=== PATIENT | male | born 1965 | race Caucasian/White ===

== ENCOUNTER 2020-08-17 10:20 | Inpatient (IN) | payer OTHER ==
[2020-08-17] VITALS (13 sets, daily range): BP systolic 112–170; BP diastolic 65–102
[~2020-08-17] VITALS: Ht 188 cm; Wt 118.4 kg
[~2020-08-17 10:20] MED LIST: ACYCLOVIR 400400 MG PO; ATORVASTATIN CA10 MG; COZAAR 50 MG TA50 M1 PO; GLUCOPHAGE500 MG PO; IBUPROFEN 800800 M1 PO; JARDIANCE25 MG PO; LISINOPRIL20 MG PO; ROBAXIN 750 MG750 MG PO; TRAMADOL 50 MG50 MG PO; ULTRAM 50MG TAB50 MG PO; VICTOZA0.6 MG/0.1
[2020-08-17] MEDS ORDERED: NOVOLOG100 UNIT/M SUBQ (10:34)
[2020-08-17] MEDS ORDERED: SOLIQUA 100 UNIT3 ML SUBQ (10:35)
[2020-08-17 10:58] LABS: ABSOLUTE LYMPHOCYTES 1.8 thou/uL (0.8-5.3); ABSOLUTE MONOCYTES 0.4 thou/uL (0.0-1.2); ABSOLUTE NEUTROPHILS 5.3 thou/uL (1.6-8.1); BASOPHILS 0.6 %; EOSINOPHILS 0.5 %; HEMATOCRIT 44.7 % (42.0-52.0); HEMOGLOBIN 15.4 gm/dL (14.0-18.0); LYMPHOCYTES 23.6 %; MCH 29.5 pg (26.0-34.0); MCHC 34.4 g/dL (28.0-37.0); MCV 85.8 fL (80.0-100.0); MONOCYTES 5.6 %; MPV 7.8 fl. (7.2-11.1); NUCLEATED RBCS 0 /100WBC; PLATELET COUNT* 159 thou/uL (150-400); POLYS 69.7 %; RBC 5.21 mil/uL (4.50-6.00); RDW-CV 13.7 % (10.5-14.5); WBC 7.6 thou/uL (4.0-11.0)
[2020-08-17 11:14] LABS: CALCIUM 7.8 mg/dL (8.5-10.1); POTASSIUM 3.8 mmol/L (3.5-5.1)
[2020-08-17 11:18] LABS: ALBUMIN 3.7 g/dL (3.4-5.0); MAGNESIUM 2.1 mg/dL (1.8-2.4); TOTAL BILIRUBIN 0.7 mg/dL (<0.1-1.0); TOTAL PROTEIN 7.2 g/dL (6.4-8.2)
[2020-08-17 12:25] LABS: CHOLESTEROL 140 mg/dL (<200); HDL CHOLESTEROL 40 mg/dL (>40); LDL CHOLESTEROL 89 mg/dL (<100); TC:HDL 3.5 Ratio (Not establshd); TRIGLYCERIDE 59 mg/dL (<150); VLDL 12 mg/dL (<40)
[2020-08-17 12:26] LABS: SERUM ASSESSMENT Clear
[2020-08-17 14:22] LABS: APTT 25.4 Seconds (25.0-31.3); PROTIME 10.3 Seconds (9.20-11.50)
--- NOTE | 2020-08-17 18:10 | EKG ---
[place] [address] ELECTROCARDIOGRAM REPORT Name: TRAMAINE ESCOBEDO Room: [address] ADM IN [facility].#: [id number] Admission: 08/17/20 Attend Phys: Tramaine Calzada Discharge: Date of : 63 Date of Service: 08/17/20 1029 Report #: [id number] THIS REPORT FOR: //name// [facility] ED Test Date: 2020-08-17 Test Time: 10:29:55 Pat Name: TRAMAINE ESCOBEDO Department: Room: [facility] Gender: M Nutrition Specialist: : 1965 Requested By: Marcos Farooq Order Number: [id number] MD: Peewee Young Measurements Intervals [place] Rate: 62 P: 45 NV: 179 QRS: -10 QRSD: 85 T: 68 QT: 391 QTc: 397 Interpretive Statements Sinus rhythm Inferior infarct, old Anterior infarct, old Baseline wander in lead(s) V3 No previous ECG available for comparison Electronically Signed On 08-17-2020 18:09:52 MASSEUR/MASSEUSE by Peewee Young [email or web address] <ELECTRONICALLY SIGNED> By: Peewee Young MD, FACC 08/17/20 1809 1029 1029 Peewee Yougn MD, FAC /EPI
--- NOTE | 2020-08-17 18:11 | EKG ---
[place] [address] ELECTROCARDIOGRAM REPORT Name: TRAMAINE ESCOBEDO Room: [address] IN [facility]#: [id number] Admission: 08/17/20 Attend Phys: Tramaine Calzada Discharge: Date of : 63 Date of Service: 08/17/20 1641 Report #: [id number] THIS REPORT FOR: //name// [facility] Test Date: 2020-08-17 Test Time: 16:41:00 Pat Name: TRAMAINE ESCOBEDO Department: Room: [facility] Gender: M Community Engagement Manager: : 1965 Requested By: Robert Trinidad Order Number: [id number] Eyad MD: Peewee Young Measurements Intervals [place] Rate: 56 P: 33 MA: 182 QRS: 5 QRSD: 82 T: 60 QT: 404 QTc: 390 Interpretive Statements Sinus rhythm Anterior infarct, old Baseline wander in lead(s) II,III,aVR,aVF Compared to ECG 08/17/2020 10:29:55 No significant changes Electronically Signed On 08-17-2020 18:11:30 ALUMNI RELATIONS MANAGER by Peewee Young [email or web address] <ELECTRONICALLY SIGNED> By: Peewee Young MD, FACC 08/17/20 1811 164 164 Peewee Young MD, FAC /EPI
--- NOTE | 2020-08-17 18:50 | NUR ---
RECEIVED REPORT FROM [facility] ATTENDANT. PT ARRIVED TO TELE FLOOR AROUND 1621. BALANCE SHEET ANALYST PLACED. RIGHT GROIN CDI, NO BLEEDING. POST CATH VITALS CHARTED. ADMISSION ASSESSMENT, HISTROY AND EDUCATION COMPLETED CHARTED. PT DENIED PAIN. MED REC UPDATED. PT TO LIE FLAT TILL 10PM. DR HUI IN TO SEE PT THIS EVENING BEFORE HE WENT HOME. THIS RN DID UPDATE DR HUI AT THAT TIME (1844) THAT PT'S TROPONIN WAS 15.80 - NO ORDERS RECEIVED, DR HUI SAID THAT WAS EXPECTED GIVEN PT'S STATUS AND STENTS. PT ATTEMPTING TO VOID PER URINAL, UNSUCCESSFUL SO FAR. WILL CONTINUE TO MONITOR BLADDER AND CATH SITE. PT CURRENTLY RESTING IN BED. CALL LIGHT IS WITHIN REACH. HOURLY ROUNDING PERFORMED. LOW FALL RISK PRECAUTIONS IN PLACE.
[2020-08-17] MEDS ORDERED: FARXIGA5 MG PO (18:53)
[2020-08-17] MEDS ORDERED: ADDERALL XR 3030 MG PO (18:54)
[2020-08-18 00:11] VITALS: BP 121/69
[2020-08-18 05:22] VITALS: BP 130/82
[2020-08-18 05:31] LABS: HEMATOCRIT 43.5 % (42.0-52.0); HEMOGLOBIN 14.9 gm/dL (14.0-18.0); MCH 29.5 pg (26.0-34.0); MCHC 34.2 g/dL (28.0-37.0); MCV 86.2 fL (80.0-100.0); MPV 8.2 fl. (7.2-11.1); RBC 5.04 mil/uL (4.50-6.00); RDW-CV 14.1 % (10.5-14.5); WBC 9.2 thou/uL (4.0-11.0)
--- NOTE | 2020-08-18 05:45 | NUR ---
PT CARE ASSUMED AT 1930. SAT MAINTAINED IN RA. ALERT ADN ORIENTED X4. DENIES PAIN AND SOB. CATH SITE DRESSING C/D/I, BRUISING PRESENT. CALL LIGHT WITHIN REACH AND BED IN LOW POSIITON. HOURLY ROUNDING DONE FOR PT SAFETY.
[2020-08-18 06:34] LABS: ALBUMIN 3.5 g/dL (3.4-5.0); CALCIUM 8.1 mg/dL (8.5-10.1); CREATININE 0.9 mg/dL (0.6-1.3); POTASSIUM 3.6 mmol/L (3.5-5.1); TOTAL BILIRUBIN 0.8 mg/dL (<0.1-1.0)
[2020-08-18 06:36] LABS: TROPONIN-I LEVEL 16.42 ng/mL (<0.06)
[2020-08-18 10:38] VITALS: BP 132/80
--- NOTE | 2020-08-18 10:58 | NUR ---
CM SPOKE TO THE PT TO DISCUSS CM ASSESSMENT. 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 PT OWNS 0 DME. CM WILL REMAIN AVAILABLE TO ASSIST AND FOLLOW NEEDED.
[2020-08-18 12:00] VITALS: BP 115/62
--- NOTE | 2020-08-18 13:36 | CARD ---
[address] [address] CARDIAC CATH REPORT Name: CLEMENTE ESCOBEDO Room: [address] IN [facility].#: [id number] Admission: 08/17/20 Attend Phys: Deanne Davalos Discharge: Date of : 63 Report #: [id number] THIS REPORT FOR: //name// cc: Michael Eisenberg MD, Bruce D. MD ~ APPROVED REPORT Study performed: 08/17/2020 13:58:22 Patient Details Patient Status: ED Room #: The patient is a 54 year-old male Event Personnel Robert Trinidad Die Cutter Apprentice, Rosa Ordoñez RN Hand Flatwork Finisher, Emiliana Joyce RTR Monitor, Ilia Bernstein FAMILY MEMBER CARETAKER Scrub Procedures Performed Art Access - R femoral artery, Left Heart Cath w/or w/o Coronaries LHC, MANPREET Place w/wo Plasty Single RCA, MANPREET Revasc Chronic Ttl Occl Single LAD CTOREVSING, Hemostasis w/ Angioseal Indication Non-STEMI Risk Factors Obesity, Hypercholesterolemia, Hypertension, Diabetes Admission/Lab Medications/Medications [place] [address] units, Angiomax IV 12 ml, Angiomax Drip IV 38.88 ml per hr, Effient PO 60 mg, Aspirin PO 162 mg Procedure Narrative The patient was brought urgently to the Cardiac Catheterization Laboratory and was prepped and draped in a sterile manner. The right femoral was infiltrated with 1% Lidocaine subcutaneous anesthesia. A 6F [place] sheath was inserted into the right femoral artery. Coronary angiography was performed using coronary diagnostic catheters. The right coronary system was accessed and visualized with a 6F 3DRC catheter. The left coronary system was accessed and visualized with a 6F JL4 catheter. The left ventricle was accessed and visualized with a 6F Straight Pigtail catheter. Left ventricular/Aortic Valve gradient assessed via catheter pullback. Left ventriculogram was performed in SMALLS projection. Pre-demployment femoral angiogram was performed . Closure device [place] [address] CARDIAC CATH REPORT Name: CLEMENTE ESCOBEDO Room: [address]#: [id number] Admission: 08/17/20 Attend Phys: Deanne Davalos Discharge: Date of : 63 Report #: [id number] 6 Fr Angioseal STS. The patient tolerated the procedure well and there were no complications associated with the procedure. There was no hematoma. Intraoperative Conscious Sedation Sedation start time: 14:30 Case end Time: 15:50 Fentanyl 50 mcg Versed 1 mg Fluoro Time: 22.9 minutes Dose: DAP 218698 cGycm2 4347 mGy Contrast Type and Amount: Visipaque 575 ml Coronary Angiography The patient's coronary anatomy is right dominant. Diagnostic Cath Left Main 0% narrowing LAD 100% mid vessel occlusion with faint left to left and right to left collaterals filling the distal LAD Circumflex 30% proximal narrowing with 80% stenosis of a subbranch of the first marginal branch of the nondominant circumflex Right Coronary 30% proximal narrowing with 40 and 80% distal right coronary stenoses; there were faint collaterals from the distal right coronary artery through the septum to the LAD Left Ventriculography The left ventricle is normal in size with contractility. The left ventricular ejection fraction is estimated to be 50%. Left ventricular wall motion abnormalities are present. There is no mitral insufficiency. Mild anteroapical hypokinesis is noted Hemodynamics The aortic pressure is 120/74 mmHg with a mean of 93 mmHg. The left ventricular pressure is 120/1 mmHg with a mean of mmHg. The left ventricular end diastolic pressure is 18 mmHg. There was no gradient across the aortic valve upon pullback. PCI Technique Lesion Anticoagulation was achieved with Angiomax. Angiomax IV bolus 12 ml Patient [place] [address] units. Percutaneous coronary intervention was performed on the mid left anterior descending artery segment. The lesion stenosis prior to intervention was 100% with CESAR 0 flow. A 6FR XB 3.5 100CM Guide Catheter was used to engage the lm ostium. A ProwaterFlex 180[place] [address] CARDIAC CATH REPORT Name: CLEMENTE ESCOBEDO Room: [address]#: [id number] Admission: 08/17/20 Attend Phys: Deanne Davalos Discharge: Date of : 63 Report #: [id number] Guidewire was used to cross the lesion. BALLOON DILATION A Balloon catheter Mini Trek RX 2.0 X 12 was inserted and inflated up to 14.00atm for 11seconds. Additional Inflation: 12.00atm for 8seconds. Additional Inflation: 12.00atm for 14seconds. STENT DEPLOYMENT A drug-eluting stent Hawthorn RX Stent 2.89E88bc was inserted and inflated up to 12.00atm for 14seconds. Additional Inflation: 15.00atm for 8seconds. Additional Inflation: 17.00atm for 9seconds. POST STENT DEPLOYMENT BALLOON DILATION A Balloon catheter NC Trek RX 2.5 X 12 was inserted and inflated up to 15.00atm for 9seconds. Additional Inflation: 14.00atm for 6seconds. Final angiography reveals 10 % stenosis with CESAR 3 flow. COMMENTS I was able to traverse the segment of chronic total occlusion of the mid LAD with a soft-tipped wire, crossing the micro channels with a prowater flex. I was then able to dilate the mid LAD and ultimately deploy a drug-eluting stent achieving CESAR-3 flow to the distal vessel PCI Technique Lesion 2 Percutaneous Coronary Intervention was performed on the distal right coronary artery. Patient [place] [address] units. The lesion stenosis prior to intervention was 80% with CESAR 3 flow. A 6F 3DRC Guide Catheter was used to engage the right ostium. A ProwaterFlex 180CM Interventional Guidewire was used to cross the lesion. Stent Deployment A drug-eluting stent Chang RX Stent 2.0X8mm was inserted and inflated up to 16.00atm for 10seconds. Additional Inflation: 22.00atm for 10seconds. Post Stent Deployment Balloon Dilation A Balloon catheter NC Trek RX 2.5 X 8 was inserted and inflated up to 16.00atm for 11seconds. Additional Inflation: 20.00atm for 11seconds. Additional Inflation: 24.00atm for 11seconds. A balloon catheter NC Trek RX 2.75 x 8 was inserted and inflated up to 15 emily for 8 seconds; 17 emily for 11 seconds; 18 emily [address] [address] CARDIAC CATH REPORT Name: CLEMENTE ESCOBEDO Room: [address] IN M.R.#: [id number] Admission: 08/17/20 Attend Phys: Deanne Davalos Discharge: Date of : 63 Report #: [id number] Final angiography reveals 10 % stenosis with CESAR 3 flow. Conclusion 1. Significant multivessel coronary artery disease characterized by the following: A 100% chronic total occlusion of the mid LAD with faint left to left and right to left collaterals filling the distal LAD system B 30% proximal circumflex narrowing with 80% stenosis of a subbranch of the first marginal branch C dominant right coronary artery with 30% proximal narrowing and tandem 40 and 80% distal stenoses 2. Mild impairment in global LV function, estimated ejection fraction being 50% with anteroapical hypokinesis 3. Modest elevation of left ventricular end-diastolic pressure at rest 4. Successful recanalization of the chronic total occlusion the mid LAD with 10% residual narrowing and CESAR-3 flow to the distal vessel 5. Successful PCI with stenting of the distal right coronary artery with 10% residual narrowing and CESAR-3 flow to the distal vessel Recommendations Cardiac Risk Reduction Program Aggressive Medical Therapy Medications Administered Aspirin (any) Prasugrel Diagnostic Cath Approved by: Robert Trinidad MD Date/Time: 08/18/2020 13:32:40 <ELECTRONICALLY SIGNED> By: Robert Trinidad MD, [facility] 08/18/20 1336 1336 1336Robert Trinidad MD, [facility] /INF
[2020-08-18 16:00] VITALS: BP 123/77
--- NOTE | 2020-08-18 16:51 | NUR ---
PT A&Ox4. VITALS STABLE. IV PATENT, SL. EATING WELL. UP AD JULIUS, WALKING HALLS. ACCU CHECK. SR ON MONITOR. RIGHT GROIN SITE C/D/I. ON RA. CALL LIGHT WITHIN REACH. WILL CONTINUE TO MONITOR.
[2020-08-18 20:10] VITALS: BP 123/63
[2020-08-19] VITALS: BP 137/71
[2020-08-19 04:00] VITALS: BP 105/72
[2020-08-19 05:44] LABS: HEMATOCRIT 42.1 % (42.0-52.0); HEMOGLOBIN 14.1 gm/dL (14.0-18.0); MCH 29.9 pg (26.0-34.0); MCHC 33.5 g/dL (28.0-37.0); MCV 89.1 fL (80.0-100.0); MPV 8.2 fl. (7.2-11.1); RBC 4.72 mil/uL (4.50-6.00); RDW-CV 14.2 % (10.5-14.5); WBC 8.4 thou/uL (4.0-11.0)
[2020-08-19 06:02] LABS: ALBUMIN 3.3 g/dL (3.4-5.0); CALCIUM 8.4 mg/dL (8.5-10.1); MAGNESIUM 2.1 mg/dL (1.8-2.4); POTASSIUM 3.6 mmol/L (3.5-5.1); TOTAL BILIRUBIN 1.1 mg/dL (<0.1-1.0); TOTAL PROTEIN 6.5 g/dL (6.4-8.2)
--- NOTE | 2020-08-19 06:03 | NUR ---
PT CARE ASSUMED AT 1930. SAT MAINTAINED IN RA. ALERT AND ORIENTED X4. DENIES SOB. C/O PAIN, MEDICATION GIVEN PER EMAR. CATH SITE DRESSING C/D/I, BRUISING PRESENT. CALL LIGHT WITHIN REACH AND BED IN LOW POSIITON. HOURLY ROUNDING DONE FOR PT SAFETY.
[2020-08-19 06:08] LABS: TROPONIN-I LEVEL 6.97 ng/mL (<0.06)
[2020-08-19 08:10] VITALS: BP 122/63
[2020-08-19] MEDS ORDERED: ASPIR 8181 MG PO (08:50)
[2020-08-19] MEDS ORDERED: METOPROLOL TART25 MG PO (08:50)
[2020-08-19] MEDS ORDERED: LISINOPRIL5 MG PO (08:50)
[2020-08-19] MEDS ORDERED: LIPITOR 40 MG T40 M1 PO (08:50)
[2020-08-19] MEDS ORDERED: EFFIENT10 MG PO (08:50)
[2020-08-19 10:52] VITALS: BP 122/63
--- NOTE | 2020-08-19 11:14 | NUR ---
PT ALERT AND ORIENTED X4. DENIES PAIN AND SOB. CALL LIGHT WITHIN REACH AND BED IN LOW POSITION. HOURLY ROUNDING DONE FOR PT SAFETY. JOEY FRANCO GIVEN REPORT.
--- NOTE | 2020-08-19 12:43 | EKG ---
[place] [address] ELECTROCARDIOGRAM REPORT Name: TRAMAINE ESCOBEDO Room: [address] IN [facility].#: [id number] Admission: 08/17/20 Attend Phys: Tramaine Calzada Discharge: 08/19/20 Date of : 63 Date of Service: 08/18/20 0546 Report #: [id number] THIS REPORT FOR: //name// [facility] Test Date: 2020-08-18 Test Time: 05:46:46 Pat Name: TRAMAINE ESCOBEDO Department: Room: [facility] Gender: M Waiter/Waitress Captain: 123 : 1965 Requested By: Robert Trinidad Order Number: [id number] Eyad MD: Peewee Young Measurements Intervals [place] Rate: 58 P: 40 MN: 167 QRS: 37 QRSD: 92 T: 72 QT: 405 QTc: 398 Interpretive Statements Sinus rhythm Anteroseptal infarct, age indeterminate Nonspecific T abnormalities, lateral leads Borderline ST elevation, lateral leads Compared to ECG 08/17/2020 16:41:00 T-wave abnormality now present ST (T wave) deviation now present Myocardial infarct finding still present Electronically Signed On 08-19-2020 12:43:13 MEDICAL EDUCATION SPECIALIST by Peewee Young [email or web address] <ELECTRONICALLY SIGNED> By: Peewee Young MD, FACC 08/19/20 1243 0546 0546 Peewee Young MD, FAC /EPI
[2020-08-20 02:05] LABS: GLYCOHEMOGLOBIN (HGB A1C) 6.8 % (4.8-5.6)
== END 2020-08-19 12:05 | disposition home or self-care (01) | DRG 247 ==
LOC: M.ERS 10:20 → M.TBA-ER 11:38 → M.2W 16:22
PROVIDERS: Emergency Medicine Emergency Medical Services; Internal Medicine; Registered Nurse; ADMIT Internal Medicine; ATTEND Internal Medicine
PROC: B215YZZ Fluoroscopy of Left Heart using Other Contrast (ICD-10-PCS; principal; 2020-08-17)
PROC: 027135Z Dilation of Coronary Artery, Two Arteries with Two Drug-eluting Intraluminal Devices, Percutaneous Approach (ICD-10-PCS; principal; 2020-08-17)
PROC: 4A023N7 Measurement of Cardiac Sampling and Pressure, Left Heart, Percutaneous Approach (ICD-10-PCS; principal; 2020-08-17)
PROC: B211YZZ Fluoroscopy of Multiple Coronary Arteries using Other Contrast (ICD-10-PCS; principal; 2020-08-17)
DX: I21.4 Non-ST elevation (NSTEMI) myocardial infarction (principal); E11.9 Type 2 diabetes mellitus without complications; I10 Essential (primary) hypertension; E78.5 Hyperlipidemia, unspecified; M10.9 Gout, unspecified; Z20.828 Contact with and (suspected) exposure to other viral communicable diseases; Z79.4 Long term (current) use of insulin; Z79.899 Other long term (current) drug therapy; Z88.0 Allergy status to penicillin; Z88.7 Allergy status to serum and vaccine; Z88.1 Allergy status to other antibiotic agents; Z23 Encounter for immunization

== ENCOUNTER 2021-04-18 12:14 | Observation (INO) | payer OTHER ==
[~2021-04-18] VITALS: Ht 190.5 cm; Wt 119.9 kg
[~2021-04-18 12:14] MED LIST changes: +ADDERALL XR 3030 MG PO; +ASPIR 8181 MG PO; +EFFIENT10 MG PO; +FARXIGA5 MG PO; +LIPITOR 40 MG T40 M1 PO; +LISINOPRIL5 MG PO; +METFORMIN HCL1000 M2 PO; +METOPROLOL TART25 MG PO; +NOVOLOG100 UNIT/M SUBQ; +SOLIQUA 100 UNIT3 ML SUBQ
[2021-04-18 12:41] VITALS: BP 121/54
[2021-04-18 14:00] LABS: ABSOLUTE BASOPHILS 0.1 thou/uL (0.0-0.2); ABSOLUTE EOSINOPHILS 0.1 thou/uL (0.0-0.7); ABSOLUTE LYMPHOCYTES 2.1 thou/uL (0.8-5.3); ABSOLUTE MONOCYTES 0.4 thou/uL (0.0-1.2); ABSOLUTE NEUTROPHILS 3.2 thou/uL (1.6-8.1); BASOPHILS 0.9 %; HEMATOCRIT 41.7 % (42.0-52.0); HEMOGLOBIN 14.3 gm/dL (14.0-18.0); LYMPHOCYTES 36.6 %; MCH 29.9 pg (26.0-34.0); MCHC 34.3 g/dL (28.0-37.0); MONOCYTES 6.6 %; MPV 7.7 fl. (7.2-11.1); NUCLEATED RBCS 0 /100WBC; PLATELET COUNT* 167 thou/uL (150-400); POLYS 54.9 %; RBC 4.79 mil/uL (4.50-6.00); RDW-CV 13.7 % (10.5-14.5); WBC 5.9 thou/uL (4.0-11.0)
[2021-04-18 14:17] LABS: CALCIUM 8.5 mg/dL (8.5-10.1); CREATININE 0.9 mg/dL (0.6-1.3); POTASSIUM 4.2 mmol/L (3.5-5.1)
[2021-04-18 14:22] LABS: ALBUMIN 3.9 g/dL (3.4-5.0); TOTAL BILIRUBIN 0.6 mg/dL (<0.1-1.0); TOTAL PROTEIN 7.2 g/dL (6.4-8.2)
--- NOTE | 2021-04-18 15:33 | EKG ---
[place] [address] ELECTROCARDIOGRAM REPORT Name: CLEMENTE ESCOBEDO Room: [facility]#: [id number] Admission: 04/18/21 Attend Phys: Discharge: Date of : 63 Date of Service: 04/18/21 1244 Report #: [id number] THIS REPORT FOR: //name// [facility] ED Test Date: 2021-04-18 Test Time: 12:44:49 Pat Name: CLEMENTE ESCOBEDO Department: Room: Gender: Breaker Machine Tender: [facility] : 1965 Requested By: Balbir Goodman Order Number: [id number] MD: Vaughn Ruiz Measurements Intervals [place] Rate: 48 P: 20 MN: 193 QRS: -9 QRSD: 90 T: 18 QT: 422 QTc: 377 Interpretive Statements Sinus bradycardia Anterior infarct, old Baseline wander in lead(s) II Compared to ECG 08/18/2020 05:46:46 Sinus rhythm no longer present T-wave abnormality no longer present ST (T wave) deviation no longer present Myocardial infarct finding still present Electronically Signed On 04-18-2021 15:33:42 CDT by Vaughn Ruiz [email or web address] <ELECTRONICALLY SIGNED> By: Vaughn Ruiz MD, FAC 04/18/21 1533 1244 1244 Vaughn Ruiz MD, FAC /EPI
[2021-04-18 17:49] VITALS: BP 111/68
[2021-04-18 18:25] VITALS: BP 95/61
--- NOTE | 2021-04-18 18:58 | NUR ---
PT TRANSFERRED TO UNIT FROM ED AT APPROX 1825, ACCOMPANIED BY SPOUSE. PT IS A&OX4, PLEASANT AND COOPERATIVE.PT IS UP AD JULIUS, LUNGS ARE CLEAR, BS+,CONTINENT OF B&B. PT ADMITTED WITH COMPLAINTS OF BACK AND ABDOMINAL PAIN AND WITH ASSESSMENT NOTED TO HAVE A NEW ONSET OF AFIB. ASSESSMENT COMPLETED. PT DENIES ANY PAIN OR DISCOMFORT AT THIS TIME. PT HEART RATE 35-45 AT REST AND PT STATES THIS IS NORMAL FOR HIM. HEART RATE INCREASES WITH ACTIVITY.ORIENTED TO ROOM. MEAL TRAY ORDERED. MONITOR PLACED.
[2021-04-18] MEDS ORDERED: CENTRUM SILVER1 EAC7 PO (18:59)
[2021-04-18 20:00] VITALS: BP 108/62
[2021-04-19] VITALS: BP 102/60
[2021-04-19 04:00] VITALS: BP 100/61
--- NOTE | 2021-04-19 06:23 | NUR ---
Alert and oriented x 4. He is up in the room independently. He has been loy all of this shift. He did get 1 liter of fluids and is saline locked. He hasn't requested anything for discomfort. He has slept well.
[2021-04-19 08:00] VITALS: BP 117/75
[2021-04-19 09:54] LABS: CHOLESTEROL 125 mg/dL (<200); HDL CHOLESTEROL 37 mg/dL (>40); LDL CHOLESTEROL 65 mg/dL (<100); TC:HDL 3.4 Ratio (Not establshd); TRIGLYCERIDE 115 mg/dL (<150); TROPONIN-I LEVEL <0.06 ng/mL (<0.06); VLDL 23 mg/dL (<40)
[2021-04-19 09:57] LABS: SERUM ASSESSMENT Clear
--- NOTE | 2021-04-19 10:28 | NUR ---
CM ASSESSMENT: PT A&O, INDEPENDENT WITH ADL'S, ACTIVE AND WORKS OUTSIDE THE HOME. PT USES 0 DME. PT HAS 0 HX OF HH OR SNF. NO CM D/C PLANNING NEEDS ANTICIPATED. CM WILL REMAIN AVAILABLE TO ASSIST AND FOLLOW NEEDED.
[2021-04-19 11:48] VITALS: BP 117/75
[2021-04-19 12:31] VITALS: BP 100/67
--- NOTE | 2021-04-19 17:52 | CON ---
[address] [address] CONSULTATION Name: CLEMENTE ESCOBEDO Room: [address] Debbie Rodriguez#: [id number] Admission: 04/18/21 Attend Phys: Deanne Davalos Discharge: 04/19/21 Date of : 63 Report #: [id number] THIS REPORT FOR: cc: Michael Eisenberg MD, Bruce D. MD Blick, David R. MD [facility] ~ cc: Michael Eisenberg MD DATE OF CONSULTATION: 04/19/2021 CARDIOLOGY CONSULTATION HISTORY OF PRESENT ILLNESS: The patient is a 55-year-old white male whom I was asked to see in the hospital today after he complained of indigestion and back pain. The patient has a long history of diabetes, hypertension, hyperlipidemia. He was admitted to [place] in August with an acute coronary syndrome. He complained of heaviness, arm pain or shortness of breath. Dr. Trinidad placed stents in an occluded LAD as well as one in the right coronary artery. He has done well since that time. He is not very active at this time. He denies recent chest tightness, shortness of breath, palpitations, syncope. He stays active, mowing yard. He notes for the past couple of days he has had a sharp pain in his back. Yesterday, he noticed some indigestion. Denies belching or bleeding. He had no nausea or vomiting. He came to the emergency room, was admitted for further evaluation and treatment. PAST MEDICAL AND SURGICAL HISTORY: Significant for shoulder surgery. He has sleep apnea and had surgery in the past. CURRENT MEDICATIONS: Includes aspirin, Lipitor, Farxiga, insulin, lisinopril, metformin, metoprolol, Effient. ALLERGIES: HE HAS AN ALLERGY TO PENICILLIN. FAMILY HISTORY: His father had stents. SOCIAL HISTORY: He is . He and his live in [place]. 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 No smoking, alcohol abuse. REVIEW OF SYSTEMS: No history of stroke. He had sleep apnea. No history of asthma, liver disease, kidney stones. No cancer. No chronic skin condition. No psychiatric illness, although he was diagnosed with ADD in the past, used to take Adderall. PHYSICAL EXAMINATION: GENERAL: Revealed a middle-aged male, [place] [address] CONSULTATION Name: CLEMENTE ESCOBEDO Room: [address]#: [id number] Admission: 04/18/21 Attend Phys: Deanne Davalos Discharge: 04/19/21 Date of : 63 Report #: [id number] VITAL SIGNS: Blood pressure 120/60, pulse was 50. He was afebrile. HEENT: He was anicteric. Conjunctivae pink. Mucosa membranes moist. NECK: Veins nondistended. No carotid bruits. Neck is supple. CHEST: Clear to auscultation. HEART: Regular rate and rhythm without rub. ABDOMEN: Soft. EXTREMITIES: Had no edema. Posterior tibial pulse 2+ bilaterally. SKIN: Cool and dry. NEUROLOGIC: Nonfocal. LABORATORY DATA: His ECG on admission showed a sinus bradycardia. There was no significant ST or T-wave changes noted. He did have poor R-wave progression. His workup, he had a portable chest x-ray that showed normal heart size, clear lung katz. Lab work: Creatinine 0.9. Liver function studies were normal. His troponins were all less than 0.06. Cholesterol 125, triglycerides 115, HDL 37, LDL 65. TSH 1.5. White blood cell count 5.9, hemoglobin 14.3. His COVID antigen stat test is negative. IMPRESSION AND RECOMMENDATIONS: 1. Dyspepsia, suspect noncardiac. Recommend no further cardiac evaluation. 2. Previous stents. No history of angina. I would continue aspirin and Effient at this time. 3. Back pain, suspect noncardiac. Recommend no further cardiac evaluation. 4. Diabetes. 5. Hyperlipidemia. The patient is on a statin drug. 6. Hypertension. The patient is on beta gatito and WARREN inhibitor. 7. Previous kidney stones. 8. History of sleep apnea. I think it is reasonable to discharge the patient at this time and have him follow up with Dr. Trinidad. <ELECTRONICALLY SIGNED> By: Vaughn Ruiz MD, [facility] 04/19/21 1752 0954 [id number] Ruiz MD, FACC /nt
== END 2021-04-19 13:00 | disposition home or self-care (01) ==
LOC: M.ERS 12:14 → M.TBA-ER 14:57 → M.2W 14:57
PROVIDERS: Physician Assistant; ADMIT Internal Medicine; ATTEND Internal Medicine
DX: R07.89 Other chest pain (principal); R10.13 Epigastric pain; Z20.822 Contact with and (suspected) exposure to COVID-19; I10 Essential (primary) hypertension; E11.9 Type 2 diabetes mellitus without complications; E78.00 Pure hypercholesterolemia, unspecified; R00.1 Bradycardia, unspecified; M54.9 Dorsalgia, unspecified; M10.9 Gout, unspecified; Z88.0 Allergy status to penicillin; Z88.1 Allergy status to other antibiotic agents; Z88.7 Allergy status to serum and vaccine; Z79.82 Long term (current) use of aspirin; Z79.899 Other long term (current) drug therapy; Z79.84 Long term (current) use of oral hypoglycemic drugs; Z86.73 Personal history of transient ischemic attack (TIA), and cerebral infarction without residual deficits; Z85.22 Personal history of malignant neoplasm of nasal cavities, middle ear, and accessory sinuses; Z98.890 Other specified postprocedural states